=== PATIENT | male | born 1970 | race Hispanic/Latino ===

== ENCOUNTER 2024-12-27 01:09 | Emergency (ER) | payer OTHER, MEDICARE ==
[~2024-12-27] VITALS: Ht 170.2 cm; Wt 95.3 kg
[~2024-12-27 01:09] MED LIST: ALLO100T PO; APRE30TA5 PO; FURO40TA5 PO; LATA2.5D7 OU; LEVO75TA10 PO; LOSA50TA64 PO; METO-409 PO; PRAV40TA62 PO; SPIR25TA6 PO
[2024-12-27 01:25] VITALS: BP 110/65; PULSE 88; RESP 18; TEMP 98.8; O2SAT 99
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
--- NOTE | 2024-12-27 03:57 | HMCIMG ---
EXAM: CT Abdomen and Pelvis Without IV contrast [place] [facility] [place] Axial computed tomography images of the abdomen and pelvis without intravenous contrast. CONTRAST: No IV contrast. COMPARISON: None provided. FINDINGS: LUNG BASES: The lung bases appear clear. No pleural effusions are seen. Pacemaker leads in the right cardiac chambers. LIVER: The small-sized liver measures 11 cm in craniocaudal dimension in the right lobe. There is volume redistribution suggesting possible cirrhosis. Multiple portosystemic collaterals are noted in the ventral abdominal wall. Portal vein measures 1.5 cm. GALLBLADDER AND BILE DUCTS: The gallbladder appears within normal limits. A few tiny 2 mm radioopaque gallstones in the neck and fundal region. No biliary ductal dilatation is evident. PANCREAS: Unremarkable. SPLEEN: Borderline splenomegaly measures 12 cm. ADRENAL GLANDS: Hypodense nodules of size 2.8 x 2.3 cm and 1.5 x 1.9 cm are noted in the right and left adrenal, respectively, suggesting adenomas. KIDNEYS, URETERS, AND BLADDER: The kidneys appear within normal limits. There is no hydronephrosis or hydroureter. No urinary calculi are seen. Mild bilateral perinephric fat stranding. STOMACH AND BOWEL: Minimal hiatal hernia. Moderate constipation. Unremarkable appearance of the rest of the stomach and bowel. No evidence of bowel obstruction. No evidence suggesting enteritis or colitis. APPENDIX: No evidence of acute appendicitis on CT examination. PERITONEUM: No free fluid. No free air. LYMPH NODES: No lymphadenopathy is evident. REPRODUCTIVE: Unremarkable as visualized. VASCULATURE: No evidence of abdominal aortic aneurysm. BONES: No aggressive appearing osseous lesion. No acute osseous pathology is evident. Lumbar spondylosis is significant at L4/L5. SOFT TISSUES: Small fat-containing umbilical hernia defect size 1.8 cm. IMPRESSION: No acute intra-abdominal or pelvic abnormality. No acute fracture. No acute visceral organ injury. Imaging suggestion of cirrhosis with portal hypertension, with ventral abdominal wall portosystemic collaterals and borderline splenomegaly. Needs clinical correlation Small fat-containing umbilical hernia. Minimal hiatal hernia and moderate constipation. /[place]
== END 2024-12-27 03:08 | disposition home or self-care (01) ==
LOC: EDH 01:09
DX: R07.89 Other chest pain (principal); E11.9 Type 2 diabetes mellitus without complications; E78.00 Pure hypercholesterolemia, unspecified; I11.0 Hypertensive heart disease with heart failure; I50.9 Heart failure, unspecified; Z79.890 Hormone replacement therapy; Z79.899 Other long term (current) drug therapy; Z95.810 Presence of automatic (implantable) cardiac defibrillator; V69.20XA Unspecified occupant of heavy transport vehicle injured in collision with unspecified motor vehicles in nontraffic accident, initial encounter; Y93.89 Activity, other specified; Y92.89 Other specified places as the place of occurrence of the external cause; Y99.8 Other external cause status
CPT/HCPCS: 71045; 74176; 99284